=== PATIENT | female | born 1955 | race Caucasian/White ===

== ENCOUNTER → 2019-11-10 | Outpatient (CLI) | payer BC, OTHER ==
[~2019-11-10] MED LIST: ASPI81TA26 PO; D31000TA2 PO; FAMO1TAB25 PO; FISH1000 PO; LEVO100T5 PO; METACAP3 PO; PERC5TAB12 PO; TUMERIC PO
== END ==
LOC: M LABSMTC 09:50
PROVIDERS: ATTEND Anesthesiology
DX: Z01.812 Encounter for preprocedural laboratory examination (principal); Z20.828 Contact with and (suspected) exposure to other viral communicable diseases
CPT/HCPCS: C9803; U0003

== ENCOUNTER 2019-11-15 05:59 | Inpatient (IN) | payer BC ==
--- NOTE | 2019-11-14 15:33 | HPE ---
DATE OF ANTICIPATED ADMISSION: 11/15/2019 ATTENDING PHYSICIAN: Dr. Capo Johnson CHIEF COMPLAINT: Left knee pain and stiffness. HISTORY: Patient is a pleasant 64-year-old female with progressively worsening left knee pain and stiffness. She failed to improve with conservative measures. She continues to have symptoms with weightbearing activities and activities of daily living. She has consented for an elective left total knee arthroplasty with Dr. Johnson for her continued symptoms. Medical optimization pending with Dr. Mcmillan. CURRENT MEDICATIONS: - levothyroxine 100 mcg daily - turmeric - aspirin 81 mg daily - vitamin D3 at 1000 units daily - Advil 200 mg as needed ALLERGIES: There are no known drug allergies. CHRONIC MEDICAL CONDITIONS: 1. Hypothyroid. 2. History of colon cancer. SURGICAL HISTORY: 1. sections. 2. Carpal tunnel releases. 3. Colectomy. SOCIAL HISTORY: Patient does not use tobacco and rarely uses alcohol. REVIEW OF SYSTEMS: Patient denies fevers, chills, nausea, vomiting, or diarrhea. Denies chest pain, shortness of breath, lightheadedness, dizziness, or headaches. Denies any abdominal pain. She does continue to have left knee pain with weightbearing activities and activities of daily living. PHYSICAL EXAMINATION: A well-nourished, well-developed female in no apparent distress.. She is alert, oriented, and cooperative. Mood and affect are appropriate. VITAL SIGNS: Height 5 feet 2-3/4 inches, weight 240 pounds, temperature 97.5, heart rate 60, respirations 18, blood pressure 140/80. HEART: Regular rate and rhythm. LUNGS: Clear to auscultation bilaterally. Breathing is regular and nonlabored. ABDOMEN: Soft and nontender. Bowel sounds were present. MUSCULOSKELETAL: Left knee reveals no erythema, edema, or ecchymosis. Skin is intact. No real tenderness to palpation. Patient can extend knee to about 5 degrees and flex to about 100 degrees. Left lower extremity strength is 5/5. There was no hip irritability elicited with range of motion testing. Calf is soft and nontender without evidence of deep venous thrombosis (DVT). She is neurovascularly intact distally. Patient is walking with a slight limp favoring the left lower extremity. She is not using any assistive device for ambulation. LABORATORY DATA: EKG: Sinus rhythm with low voltage in the precordial leads. Left knee x-ray notable for end-stage degenerative changes. Chest x-ray: No focal consolidation. Comprehensive metabolic profile: Sodium 139, fasting glucose 87, potassium 4.2, chloride 107, carbon dioxide 29, anion gap decreased at 7.2, BUN 13, creatinine 0.870, calcium 9.2. Alkaline phosphatase 91, total protein 6.9, albumin 3.6, globulin 3.3, albumin/globulin ratio 1.1. Total bilirubin 1.0, AST 21, ALT 27. GFR greater than 60. Erythrocyte sedimentation rate 20. INR 0.98. Complete blood count: WBC 7.1, RBC 4.57, hemoglobin 13.3, hematocrit 40, platelets 213. IMPRESSION: Left knee degenerative arthritis with x-rays notable for end-stage degenerative changes. PLAN: Patient is consented for an elective left total knee arthroplasty with Dr. Johnson for her continued symptoms. Medical optimization pending with Dr. Mcmillan. Patient will use her Bactroban and Hibiclens as directed. She will follow her primary adult daycare coordinator's recommendations for taking daily medications and any anticoagulants if appropriate. Patient will call [facility] the day prior to surgery in the afternoon to get a report time for her surgical date. She will be nothing by mouth after midnight the night prior to surgery unless her primary adult daycare coordinator has instructed her take any medications with a small sip of water the morning of. OLI
[~2019-11-15] VITALS: Ht 160 cm; Wt 108.4 kg
[2019-11-15] VITALS (8 sets, daily range): BP systolic 128–146; BP diastolic 67–91
[~2019-11-15 05:59] MED LIST changes: -PERC5TAB12 PO
[2019-11-15] MEDS ORDERED: ceFAZolin SOD 2 GM in IV 1 EA IV ONE (06:00)
[2019-11-15] MEDS ORDERED: ACETAMINOPHEN 500 MG TAB PO ONE (06:00)
[2019-11-15] MEDS ORDERED: LR 1,000 ML IV ONE (06:15)
[2019-11-15] MEDS ORDERED: MIDAZOLAM INJ 2MG/2ML VIAL (J2250 PER 1MG) As Ordered ONE (06:42)
[2019-11-15] MEDS ORDERED: fentaNYL 100 MCG/2 ML INJECTION (J3010) As Ordered ONE (06:42)
[2019-11-15 06:43] LABS: INR 0.94; PROTHROMBIN TIME 12.8 SECONDS (12.5-14.3)
[2019-11-15] MEDS ORDERED: EPINEPHrine INJ 1 MG/ML 1ML AMP As Ordered ONE (07:07)
[2019-11-15] MEDS ORDERED: TRANEXAMIC ACID 100 MG/ML 10ML VIAL As Ordered ONE (07:07)
[2019-11-15] MEDS ORDERED: BUPIVACAINE HCL 0.25% 10ML VIAL As Ordered ONE (07:07)
[2019-11-15] MEDS ORDERED: ceFAZolin 1GM VIAL (J0690 PER 500MG) As Ordered ONE (07:07)
[2019-11-15] MEDS ORDERED: BUPIVACAINE LIPOSOME/PF 1.3% 20ML VIAL (13.3MG/ML)(EXPAREL)(C9290 PER1MG) As Ordered ONE (07:08)
[2019-11-15] MEDS ORDERED: dexameTHASONE 4 MG/ML 1ML VIAL (J1100 PER 1MG) As Ordered ONE (07:17)
[2019-11-15] MEDS ORDERED: propofoL 500 MG/50 ML VIAL As Ordered ONE (07:17)
[2019-11-15] MEDS ORDERED: ONDANSETRON 4MG/2ML VIAL As Ordered ONE (07:17)
[2019-11-15] MEDS ORDERED: LIDOCAINE 2% 100MG/5ML SDV (FOR ANES.) As Ordered ONE (07:17)
[2019-11-15] MEDS ORDERED: ePHEDrine SULFATE 25 MG/5 ML(5MG/ML) SYRINGE As Ordered ONE (08:07)
[2019-11-15] MEDS ORDERED: propofoL 200 MG/20 ML VIAL As Ordered ONE ×2 (08:45→09:13)
[2019-11-15] MEDS ORDERED: MIDAZOLAM INJ 2MG/2ML VIAL (J2250 PER 1MG) IV ONE (09:00)
[2019-11-15] MEDS ORDERED: fentaNYL 100 MCG/2 ML INJECTION (J3010) IV ONE (09:00)
[2019-11-15] MEDS ORDERED: fentaNYL 100 MCG/2 ML INJECTION (J3010) IV PRN (10:00)
[2019-11-15] MEDS ORDERED: HYDROMORPHONE HCL 0.5 MG/ 0.5 ML SYRINGE (J1170 PER 1) IV PRN (10:00)
[2019-11-15] MEDS ORDERED: ONDANSETRON 4MG/2ML VIAL IV PRN ×2 (10:00→11:00)
[2019-11-15] MEDS ORDERED: LR 1,000 ML IV SCH ×2 (10:00→11:00)
[2019-11-15] MEDS ORDERED: oxyCODONE 5MG TAB PO PRN (10:00)
[2019-11-15] MEDS ORDERED: MORPHINE 2 MG/ML 1ML VIAL (J2270) IV PRN (11:00)
[2019-11-15] MEDS ORDERED: MORPHINE 4 MG/ML 1ML VIAL/SYRINGE (J2270) IV PRN (11:00)
[2019-11-15] MEDS ORDERED: ACETAMINOPHEN TAB 650MG DOSE (2X325MG) PO PRN (11:00)
[2019-11-15] MEDS ORDERED: PERCOCET 5MG/325MG TAB PO PRN (11:00)
[2019-11-15] MEDS: PERCOCET 5MG/325MG TAB PO PRN ×2 (13:15→21:25)
[2019-11-15] MEDS ORDERED: LIDOCAINE 1% MDV 20ML VIAL ONE (14:18)
[2019-11-15] MEDS ORDERED: dexameTHASONE 10MG/1ML VIAL PRES.FREE (J1100 PER 1MG) ONE (14:18)
[2019-11-15] MEDS ORDERED: ROPIvacaine 0.5% 30ML INJECTION (J2795 PER 1MG) ONE (14:18)
[2019-11-15] MEDS: ceFAZolin SOD 2 GM in IV 1 EA IV SCH (15:44)
--- NOTE | 2019-11-15 16:40 | CR.PDOC ---
General Date of Consultation: Nov 15, 2019 Attending Physician: Mila Johnson Vital Signs/I&O Vital Signs Date Time Temp Pulse Resp B/P (MAP) Pulse Ox O2 Delivery O2 Flow Rate FiO2 11/15/19 15:00 98.1 53 18 144/83 (103) 99 Room Air 11/15/19 07:30 3 Laboratory Data Labs 24H Laboratory Tests 2 11/15/19 06:15: Prothrombin Time 12.8, Prothromb Time International Ratio 0.94 Allergies Coded Allergies: No Known Allergies (Unverified , 11/01/19) Home Medications Scheduled Aspirin (Aspirin EC) 81 Mg Tablet.dr, 81 MG PO DAILY for pain for 30 Days, #30 (Reported) Cholecalciferol (Vitamin D3) (Vitamin D3) 1,000 Unit Tablet, 2,000 UNITS PO DAILY, (Reported) Famotidine (Famotidine) 10 Mg Tablet, 10 MG PO DAILY for 30 Days, #30 (Reported) Levothyroxine Sodium (Levothyroxine Sodium) 100 Mcg Tablet, 100 MCG PO DAILY for 30 Days, #30 (Reported) [place]-3 Fatty Acids/Fish Oil (Fish Oil 1,000 mg Capsule) 1 Each Capsule, 2,000 MG PO DAILY, (Reported) [Tumeric] , 1,000 MG PO DAILY, (Reported) MILLA CACERES MD Nov 15, 2019 16:40
--- NOTE | 2019-11-15 17:39 | HPEPDOC ---
[facility] Medical History & Physical Date of Admission Nov 15, 2019 Date of Service: Nov 15, 2019 Attending Physician: Mila Johnson History and Physical CHIEF COMPLAINT: elective TKA HISTORY OF PRESENT ILLNESS: 64 y/o F PMHx hypothyroidism, arthritis, colon ca s/p colectomy presents for elective TKA. Hospitalist service asked to consult for medical co-management. Pt denies CP/SOB/palpitations. No N/V/Abd pain. Feels well. PAST MEDICAL HISTORY: As per HPI PAST SURGICAL HISTORY: SOCIAL HISTORY: FAMILY HISTORY: ALLERGIES: Please see below. REVIEW OF SYSTEMS: HEENT: Denies sore throat/headache CARDIOVASCULAR: Denies chest pain/palpitations RESPIRATORY: Denies shortness of breath/cough GASTROINTESTINAL: denies nausea/vomiting GENITOURINARY: Denies dysuria/urinary urgency. MUSCULOSKELETAL: Denies myalgias/arthralgias NEUROLOGICAL: Denies any focal weakness HOME MEDICATIONS: Please see below. PHYSICAL EXAMINATION: Vitals: (see below) General: No acute distress, laying comfortably in bed. HEENT: Moist mucous membranes. Neck: No JVD or lymphadenopathy Cardiac: RRR, No murmurs Pulm: Clear to auscultation b/l. No wheezing, rhonchi Abd: NT/ND + BS Ext: No edema or cyanosis. Left knee in JESSE bandage. Distal pulses intact. cap refill<2sec. ASSESSMENT/PLAN: 1. Left TKA POD#0 - management per ortho. 2. Hypothyroidism - restart Synthroid 100mcg po daily. 3. h/o colon ca s/p colectomy. DVT Prophy: per ortho Thank you for the consultation. Vital Signs Vital Signs Date Time Temp Pulse Resp B/P (MAP) Pulse Ox O2 Delivery O2 Flow Rate FiO2 11/15/19 16:00 98.3 54 18 141/82 (101) 98 Room Air 11/15/19 07:30 3 Laboratory Data Labs 24H Laboratory Tests 2 11/15/19 06:15: Prothrombin Time 12.8, Prothromb Time International Ratio 0.94 Home Medications Scheduled Aspirin (Aspirin EC) 81 Mg Tablet.dr, 81 MG PO DAILY for pain Cholecalciferol (Vitamin D3) (Vitamin D3) 1,000 Unit Tablet, 2,000 UNITS PO DAILY Famotidine (Famotidine) 10 Mg Tablet, 10 MG PO DAILY Levothyroxine Sodium (Levothyroxine Sodium) 100 Mcg Tablet, 100 MCG PO DAILY [place]-3 Fatty Acids/Fish Oil (Fish Oil 1,000 mg Capsule) 1 Each Capsule, 2,000 MG PO DAILY [Tumeric] , 1,000 MG PO DAILY Scheduled PRN Oxycodone HCl/Acetaminophen (Percocet 5-325 mg Tablet) 1 Each Tablet, 1-2 TAB PO Q4H PRN for PAIN Allergies Coded Allergies: No Known Allergies (Unverified , 11/01/19) A-FIB/CHADSVASC A-FIB History Current/History of A-Fib/PAF?: No MILLA CACERES MD Nov 15, 2019 17:39
[2019-11-16] MEDS: ceFAZolin SOD 2 GM in IV 1 EA IV SCH ×2 (00:55→07:29)
[2019-11-16 01:30] VITALS: BP 130/60
[2019-11-16 02:00] VITALS: BP 125/64
[2019-11-16 06:00] VITALS: BP 122/61
[2019-11-16] MEDS: LEVOTHYROXINE 100MCG TABLET (0.1MG) PO SCH (06:24)
[2019-11-16] MEDS ORDERED: PERC5TAB12 PO (06:40)
[2019-11-16] MEDS ORDERED: PERCOCET 5MG/325MG TAB PO PRN ×2 (06:45)
[2019-11-16 07:06] LABS: HEMATOCRIT 35.9 % (36.0-47.0); HEMOGLOBIN 11.8 g/dl (12.0-15.5); MEAN CORPUSCULAR HEMOGLOBIN 29.6 pg (27.0-33.0); MEAN CORPUSCULAR HGB CONC 32.9 g/dl (32.0-36.5); PLATELET COUNT, AUTOMATED 196 10^3/uL (150-450); RED BLOOD COUNT 3.99 10^6/uL (4.00-5.40); WHITE BLOOD COUNT 10.1 10^3/uL (4.0-10.0)
[2019-11-16] MEDS: ASPIRIN 81 MG ENTERIC TAB PO SCH (07:29)
[2019-11-16] MEDS: MIRALAX *UNIT DOSE* 17GM PACKET PO SCH (07:29)
[2019-11-16] MEDS: MOM 30ML SUSPENSION UDC PO SCH (07:29)
[2019-11-16 07:31] LABS: ALBUMIN 3.2 GM/DL (3.2-5.2); ALT/SGPT 19 U/L (12-78); BILIRUBIN,TOTAL 0.7 MG/DL (0.2-1.0); BLOOD UREA NITROGEN 16 MG/DL (7-18); CALCIUM LEVEL 8.5 MG/DL (8.8-10.2); CARBON DIOXIDE LEVEL 25 MEQ/L (21-32); CHLORIDE LEVEL 109 MEQ/L (98-107); CREATININE FOR GFR 0.79 MG/DL (0.55-1.30); GLOMERULAR FILTRATION RATE > 60.0 (>45); GLUCOSE, FASTING 135 MG/DL (70-100); POTASSIUM SERUM 4.3 MEQ/L (3.5-5.1); SODIUM LEVEL 141 MEQ/L (136-145); TOTAL PROTEIN 6.2 GM/DL (6.4-8.2)
[2019-11-16 10:00] VITALS: BP 125/65
[2019-11-16 10:27] LABS: THYROID STIMULATING HORMONE 0.584 uIU/ML (0.358-3.740); TROPONIN I < 0.02 NG/ML (< 0.10)
[2019-11-16] MEDS: ACETAMINOPHEN TAB 650MG DOSE (2X325MG) PO SCH ×3 (11:43→23:30)
[2019-11-16 12:40] LABS: VITAMIN B12 LEVEL 265 PG/ML (247-911)
--- NOTE | 2019-11-16 12:48 | IPNPDOC ---
Text Note Date of Service The patient was seen on 11/16/19. NOTE Subjective: Pt feels well. pain controlled. Notes episode of bradycardia ov ernight HR low 30s while sleeping, asymptomatic. Denies Dizziness, lightheadedness, CP/SOB/palpitations. PHYSICAL EXAMINATION: Vitals: (see below) General: No acute distress, laying comfortably in bed. HEENT: Moist mucous membranes. Neck: No JVD or lymphadenopathy Cardiac: RRR, No murmurs Pulm: Clear to auscultation b/l. No wheezing, rhonchi Abd: NT/ND + BS Ext: No edema or cyanosis. Left knee dressing clean and dry. mild swelling. no erythema or signs of infection. Distal pulses intact. cap refill<2sec. ASSESSMENT/PLAN: 1. Left TKA POD#1 - management per ortho. 2. Hypothyroidism - restart Synthroid 100mcg po daily. 3. h/o colon ca s/p colectomy. 4. Sinus Bradycardia - pt with baseline low HR 40-50s. Received anesthesia yesterday and opioids for pain. Percocet d/c. check TSH/b12, echo. EKG with sinus napoleon. No CP/dizziness. Monitor overnight. Will need outpt f/u and outpt sleep study to r/o PIERRE. DVT Prophy: per ortho VS,Sammybone, I+O VS, Fishbone, I+O Laboratory Tests 11/16/19 06:39 Vital Signs Date Time Temp Pulse Resp B/P (MAP) Pulse Ox O2 Delivery O2 Flow Rate FiO2 11/16/19 10:00 98.4 55 16 125/65 (85) 97 Room Air 11/15/19 07:30 3 I&O- Last 24 Hours up to 6 AM 11/16/19 06:00 Intake Total 2470 ml Output Total 1020 ml Balance 1450 ml MILLA CACERES MD Nov 16, 2019 12:48
[2019-11-16] MEDS ORDERED: dexameTHASONE 10MG/1ML VIAL PRES.FREE (J1100 PER 1MG) ONE (13:50)
[2019-11-16] MEDS ORDERED: LIDOCAINE 1% MDV 20ML VIAL ONE (13:50)
[2019-11-16] MEDS ORDERED: ROPIvacaine 0.5% 30ML INJECTION (J2795 PER 1MG) ONE (13:50)
[2019-11-16 14:00] VITALS: BP 125/64
[2019-11-16] MEDS ORDERED: traMADol 50 MG TAB PO PRN (14:15)
[2019-11-16] MEDS ORDERED: MORPHINE 2 MG/ML 1ML VIAL (J2270) IV ONE (14:15)
[2019-11-16] MEDS: traMADol 50 MG TAB PO PRN (21:02)
[2019-11-16 22:00] VITALS: BP 146/73
[2019-11-17] MEDS: traMADol 50 MG TAB PO PRN ×4 (01:04→14:12)
[2019-11-17] MEDS: LEVOTHYROXINE 100MCG TABLET (0.1MG) PO SCH (05:38)
[2019-11-17] MEDS: ACETAMINOPHEN TAB 650MG DOSE (2X325MG) PO SCH ×2 (05:38→11:57)
[2019-11-17 05:55] LABS: HEMATOCRIT 33.2 % (36.0-47.0); HEMOGLOBIN 10.9 g/dl (12.0-15.5); MEAN CORPUSCULAR HEMOGLOBIN 30.4 pg (27.0-33.0); MEAN CORPUSCULAR HGB CONC 32.8 g/dl (32.0-36.5); MEAN CORPUSCULAR VOLUME 92.7 fl (80.0-96.0); PLATELET COUNT, AUTOMATED 146 10^3/uL (150-450); RED BLOOD COUNT 3.58 10^6/uL (4.00-5.40); WHITE BLOOD COUNT 7.9 10^3/uL (4.0-10.0)
[2019-11-17 06:00] VITALS: BP 144/73
[2019-11-17 06:15] LABS: ALT/SGPT 18 U/L (12-78); BILIRUBIN,TOTAL 0.8 MG/DL (0.2-1.0); BLOOD UREA NITROGEN 16 MG/DL (7-18); CALCIUM LEVEL 8.2 MG/DL (8.8-10.2); CARBON DIOXIDE LEVEL 22 MEQ/L (21-32); CHLORIDE LEVEL 108 MEQ/L (98-107); CREATININE FOR GFR 0.79 MG/DL (0.55-1.30); GLOMERULAR FILTRATION RATE > 60.0 (>45); GLUCOSE, FASTING 117 MG/DL (70-100); POTASSIUM SERUM 4.9 MEQ/L (3.5-5.1); SODIUM LEVEL 136 MEQ/L (136-145)
[2019-11-17] MEDS ORDERED: KETOROLAC 30 MG/ML 1ML VIAL IV ONE (07:00)
[2019-11-17] MEDS: MIRALAX *UNIT DOSE* 17GM PACKET PO SCH (07:43)
[2019-11-17] MEDS: MOM 30ML SUSPENSION UDC PO SCH (07:43)
[2019-11-17] MEDS: ASPIRIN 81 MG ENTERIC TAB PO SCH (07:43)
--- NOTE | 2019-11-17 09:48 | IPNPDOC ---
Text Note Date of Service The patient was seen on 11/17/19. NOTE Subjective: Pt feels well. pain controlled. No further episodes of significant bradycardia after percocet d/c. Denies Dizziness, lightheadedness, CP/SOB/palpitations. Feels well. PHYSICAL EXAMINATION: Vitals: (see below) General: No acute distress, laying comfortably in bed. HEENT: Moist mucous membranes. Neck: No JVD or lymphadenopathy Cardiac: RRR, No murmurs Pulm: Clear to auscultation b/l. No wheezing, rhonchi Abd: NT/ND + BS Ext: No edema or cyanosis. Left knee dressing clean and dry. mild swelling. no erythema or signs of infection. Distal pulses intact. cap refill<2sec. ASSESSMENT/PLAN: 1. Left TKA POD#1 - management per ortho. 2. Hypothyroidism - restart Synthroid 100mcg po daily. 3. h/o colon ca s/p colectomy. 4. Sinus Bradycardia - pt with baseline low HR 40-50s. Received anesthesia yesterday and opioids for pain. Percocet d/c. Improved. TSH/b12 wnl, Echo pending (pt would like to f/u with PCP for results). EKG with sinus napoleon. No CP/dizziness. Monitor overnight. Will need outpt f/u and outpt sleep study to r/o PIERRE. wnl. F/u with Pulm/cardio outpt. DVT Prophy: per ortho VS,Fishbone, I+O VS, Fishbone, I+O Laboratory Tests 11/17/19 05:40 Vital Signs Date Time Temp Pulse Resp B/P (MAP) Pulse Ox O2 Delivery O2 Flow Rate FiO2 11/17/19 06:08 18 11/17/19 06:00 98.1 51 144/73 (96) 99 Room Air 11/15/19 07:30 3 I&O- Last 24 Hours up to 6 AM 11/17/19 06:00 Intake Total 2100 ml Output Total 0 ml Balance 2100 ml MILLA CACERES MD Nov 17, 2019 09:48
[2019-11-17 14:00] VITALS: BP 140/70
[2019-11-17 16:08] LABS: Lyme Disease IgG/IgM Antibodie <0.91 ISR (0.00-0.90); Lyme Disease IgM Ab Quantitati <0.80 index (0.00-0.79)
--- NOTE | 2019-11-20 10:48 | ECGEPIP ---
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
--- NOTE | 2019-11-20 16:52 | ECHO ---
DATE OF PROCEDURE: 11/16/2019 Age: 64 Gender: Female REFERRING PHYSICIAN: Jhon Harding MD REASON FOR STUDY: Bradycardia. 2D MEASUREMENTS: IVS 1.2 cm LV 5.3 cm LVPW 1.0 cm LA 4.0 cm Aorta 3.1 cm IVC 1.9 cm DOPPLER MEASUREMENT Peak velocity across the aortic valve 2.0 m/s Peak velocity across the LVOT 0.81 m/s Mitral E 0.76 Mitral A 0.75 with a ratio of 1.0 Maximum tricuspid valve velocity 2.7 m/s 2D COMMENTS: 1. Normal left ventricular size, wall thickness, and normal global left ventricular systolic function. The estimated left ventricular systolic ejection fraction is 60% to 65%. 2. Borderline enlarged left atrium. Normal right atrium and left ventricle. 3. The atrial septum appears to be normal without evidence of defect or shunt. 4. Normal aortic root. 5. No pericardial effusion. 6. Mildly calcified aortic valve with normal leaflet excursion. Mildly calcified mitral annulus with normal anterior mitral valve leaflet motion. Normal tricuspid valve and pulmonic valve. The proximal pulmonary artery branches were not well visualized. 7. The inferior vena cava was normal in size, central venous pressure is most likely normal. 8. Doppler detects trace mitral regurgitation and mild tricuspid regurgitation. The calculated pulmonary artery systolic pressure varies between 30 to 40 mmHg. Assessment of the left ventricle diastolic function was limited. IMPRESSION: 1. Normal global left ventricular systolic function. Assessment of the left ventricular diastolic function was limited. 2. Aortic valve sclerosis with probably mild aortic stenosis, but no aortic regurgitation. 3. Mitral valve annulus calcification with trace mitral regurgitation and a borderline enlarged left atrium. 4. Mild tricuspid regurgitation with mild pulmonary hypertension. 5. Isolated premature ventricular contractions (PVCs) noted during the test. MTDD
--- NOTE | 2019-11-20 16:54 | REP ---
LEFT KNEE: 2-VIEWS OBTAINED PORTABLY HISTORY: Postop. FINDINGS: AP and lateral views of the left knee obtained portably demonstrate left knee arthroplasty components in good position relative to each other and their [place] bones. There are prepatellar surgical clips and there is periarticular and intraarticular soft tissue gas postoperatively. IMPRESSION: Status post left knee arthroplasty. OLI
--- NOTE | 2019-11-20 16:57 | RO ---
DATE OF OPERATION: 11/15/2019 PREOPERATIVE DIAGNOSIS: Left knee degenerative arthritis. POSTOPERATIVE DIAGNOSIS: Left knee degenerative arthritis. PROCEDURES: Left total knee arthroplasty using a size 5 cruciate-retaining Attune femoral component cemented, with a size 4 tibial tray, a 6-mm polyethylene rotating platform insert, and a 35-mm polyethylene button. All components were cemented. Prosthesis was made by [employer]. SURGEON: Dr. Mila Johnson. SANDFILL OPERATOR SURFACE: Mr. Remi Barnett. ANESTHESIA: Spinal with left femoral nerve block. COMPLICATIONS: None. SPECIMENS: Joint surface. ESTIMATED BLOOD LOSS: 20 mL. DESCRIPTION OF PROCEDURE: Antibiotics were given intravenously preoperatively. A successful left femoral nerve block and then a spinal anesthetic were induced. The tourniquet was placed on the left upper thigh and not inflated. The left lower extremity was carefully prepped and draped in the usual sterile fashion and then the leg was elevated, and after an appropriate time-out, the tourniquet was inflated to 250 mmHg. The longitudinal incision was made for a medial parapatellar approach to the knee. Bovie cautery was used to coagulate crossing vessels. Subperiosteal dissection around the proximal medial and lateral tibial plateaus was performed. Then, the patella was everted and the knee flexed and then the ACL debrided. Drill was placed down the center of the femoral canal, followed by the intramedullary frank. The distal femoral cutting jig set at 5 valgus, cut at 9-mm resection level for a left knee. The block was pinned into position. Distal femoral cut performed. AP sizing jig measured for a size 5. The sulcus osteotomy jig was then applied and the sulcus osteotomy performed. We then exposed the proximal tibia and used extramedullary tibial alignment jig to estimate being parallel to the mechanical axis of the tibia referencing off of the medial tibial condyle at 4-mm resection level. The block was pinned into position. Secondary check with the extramedullary frank confirmed that we appeared to be parallel to the mechanical axis of the tibia with appropriate slope. The proximal tibia osteotomy was thus performed. We then placed the lamina bench molder apprentice laterally and performed a completion medial meniscectomy and debridement of the posterior and medial osteophytes and the large posterior loose bodies that were identified. We then placed the lamina bench molder apprentice medially and performed a completion lateral meniscectomy as well as debridement of loose bodies in the posterior lateral compartment. The spacer block was then applied and showed good symmetry with good stability both in the flexion and extension gaps. It was stable to varus and valgus stress testing both in flexion and in extension. We then exposed the proximal tibia, sized for a #4 tibial tray, which was pinned into position, followed by the reamer and the broach, then the trial polyethylene, then the trial femoral component which fit nicely. We brought the knee into extension, everted the patella, and performed a patellar osteotomy, sized for a 35-mm. Button lug holes were drilled and a button was applied. The patellofemoral tracking was anatomic. We then drilled the lug holes for the femur, removed all of the trial components, and placed Exparel in the subperiosteal tissues around the distal femur and the proximal tibia. Then, Mr. Remi Barnett mixed the cement on the back table as I prepared the bony surfaces for cementing with a copious amount of pulsatile lavage irrigant solution. Mr. Barnett was also critical to the success of this difficult procedure by helping with appropriate soft tissue retraction, helped with manipulating the knee as needed, helped to prepare the patient for surgery, helped to mix the cement, helped to close the wound amongst many other tasks to allow me to perform the operation smoothly, efficiently, and safely. Once all of the bony surfaces were thoroughly dry, we cemented the tibial tray, removed excess cement, and placed the polyethylene. Then, we cemented the femoral component, removed excess cement, placed the knee into extension, everted the patella, and then cemented the patella and held it with a clamp after having removed all of the excess cement. The knee was held in extension with a clamp until the cement hardened. As we awaited this, we copiously pulsatile lavage irrigated the knee joint once again. We then placed tranexamic acid into the knee joint. We then began closing the apex of the arthrotomy with two #1 PDS sutures. The medial parapatellar area was closed with #1 PDS suture and a running double-armed Stratafix used to close the capsule. Then, the tourniquet was released. We irrigated between layers, closed the deep subdermal tissue with interrupted 2-0 PDS suture. The skin was closed with nelda, covered by an Optifoam, and dry sterile bulky dressing. She was then transferred to the recovery room in stable condition. There were no intraoperative complications. OLI
--- NOTE | 2019-11-22 13:12 | DS ---
DATE OF ADMISSION: 11/16/2019 DATE OF DISCHARGE: 11/17/2019 ATTENDING PHYSICIAN: Mila Johnson MD CHIEF COMPLAINT: Left knee degenerative arthritis. OTHER DIAGNOSES: Hypothyroid, history of colon cancer. DISCHARGE DIAGNOSIS: Left knee degenerative arthritis status post left total knee arthroplasty. HISTORY: Patient is a 64-year-old female with progressively worsening left knee pain and stiffness. She failed to improve with conservative measures. She continued to have symptoms with weightbearing activities and activities of daily living. She consented for an elective left total knee arthroplasty with Dr. Johnson for her continued symptoms. OPERATION PERFORMED: Left total knee arthroplasty. HOSPITAL COURSE: The patient underwent a left total knee arthroplasty under spinal anesthesia with femoral nerve block. Surgery was uneventful and her hospital course was without complication. She was up with physical therapy per their protocol weightbearing as tolerated on the left lower extremity. Patient was discharged on oral pain medications and will resume her preoperative medications and diet. She will use her thromboembolic deterrent stockings and take her anticoagulant postoperatively to prevent deep venous thrombosis. Patient will followup in our office in 12-14 days for a wound check and staple removal. She is encouraged to contact us sooner if there is any increase in pain, redness, drainage, numbness or tingling in the extremity, fever greater than 101 degrees, or any other concerns. Please see medical records for additional details. Edited: 11/22/2019 1213 vlm MTDD
== END 2019-11-17 17:05 | disposition home health service (06) | DRG 302 ==
LOC: M OR 05:59 → M MS5PR 10:25
PROVIDERS: ADMIT Orthopaedic Surgery; ATTEND Orthopaedic Surgery
PROC: 0SRD0J9 Replacement of Left Knee Joint with Synthetic Substitute, Cemented, Open Approach (ICD-10-PCS; principal; 2019-11-15 07:30)
DX: M17.12 Unilateral primary osteoarthritis, left knee (principal); R00.1 Bradycardia, unspecified; E03.9 Hypothyroidism, unspecified; Z85.038 Personal history of other malignant neoplasm of large intestine; Z79.82 Long term (current) use of aspirin; Z79.899 Other long term (current) drug therapy